=== PATIENT | female | born 1980 | race Caucasian/White ===

== ENCOUNTER 2020-08-26 23:25 | Emergency (ER) | payer SELFPAY ==
[~2020-08-26] VITALS: Ht 158.8 cm; Wt 52.7 kg
--- NOTE | 2020-08-26 23:37 | PHYS DOC ---
General Adult EDM: Chief Complaint: LOWER EXT PAIN HPI: HPI: Patient is a 40-year-old female presenting via EMS for left lower extremity pain. Reports she was seen and thoroughly evaluated at [facility] yesterday and tested positive for Covid 19. Reports she is homeless, has been on her feet walking around the city and called EMS and attempt they would take her to a local hotel which houses homeless individuals with known COVID-19 infection. Said hotel does not currently offer the service anymore and so, patient reports she wanted to go to any hospital so she could be seen for left lower extremity pain. Reports this pain has been ongoing but exacerbated due to her being on her feet all day. Has not taken anything for this pain. Review of Systems: Review of Systems: Fourteen body systems of review of systems have been reviewed. See HPI for pertinent positives and negative responses, other novoa all other systems are negative, non-pertinent or non-contributory Heart Score: C/O Chest Pain: No Risk Factors: Risk Factors: DM, Current or recent (<one month) smoker, HTN, HLP, family history of CAD, obesity. Risk Scores: Score 0 - 3: 2.5% MACE over next 6 weeks - Discharge Home Score 4 - 6: 20.3% MACE over next 6 weeks - Admit for Clinical Observation Score 7 - 10: 72.7% MACE over next 6 weeks - Early Invasive Strategies Physical Exam: PE: Constitutional: Well developed, well nourished, no acute distress, non-toxic a ppearance. HENT: Normocephalic, atraumatic, bilateral external ears normal, oropharynx moist, no oral exudates, nose normal. Eyes: PERRLA, EOMI, conjunctiva normal, no discharge. Neck: Normal range of motion, no tenderness, supple, no stridor. Cardiovascular: Heart rate regular, sinus rhythm, no murmurs rubs or gallops Lungs & Thorax: Bilateral breath sounds clear to auscultation Abdomen: Bowel sounds normal, soft, no tenderness, no masses, no pulsatile masses. Nonsurgical abdomen, no peritoneal signs Skin: Warm, dry, no erythema, no rash. Back: No tenderness, no CVA tenderness. Extremities: No tenderness, no cyanosis, no clubbing, ROM intact, no edema. Neurologic: Alert and oriented X 3, grossly normal motor & sensory function, no focal deficits noted. Psychologic: Manipulative mood, Current Patient Data: Vital Signs: Vital Signs Date Time Temp Pulse Resp B/P (MAP) Pulse Ox O2 Delivery O2 Flow Rate FiO2 08/26/20 23:30 98.6 86 20 126/81 (96) 100 Room Air 98.6 Vital Signs Date Time Temp Pulse Resp B/P (MAP) Pulse Ox O2 Delivery O2 Flow Rate FiO2 08/27/20 02:06 98 18 127/69 (88) 99 Room Air 08/26/20 23:30 98.6 98.6 EKG: EKG: [] Radiology/Procedures: Radiology/Procedures: [] Course & Med Decision Making: Course & Med Decision Making Vital signs stable. HPI and physical exam grossly nonconcerning Patient manipulative and malingering while in ER. She has been demanding supplemental oxygen because she states she needs it despite being 100% on room air. Nasal cannula without supplemental oxygen placed on patient with improvement in symptoms per her report Patient's lower extremity examination unremarkable, no indication for further diagnostic work-up. Tylenol administered Patient educated on COVID-19 infection and next steps of care especially that she is homeless. Resources given. Reiterated there is no indication for further diagnostic work-up or hospital admission at present time Patient discharged home in stable condition, strict return precautions discussed with good understanding by patient, all questions and concerns addressed prior to your departure Dragon Disclaimer: Linda Disclaimer: This electronic medical record was generated, in whole or in part, using a voice recognition dictation system. Departure Departure Impression: Primary Impression: COVID-19 Disposition: HOME / SELF CARE / HOMELESS Condition: STABLE Additional Instructions: You were seen for right lower extremity pain with known COVID-19 infection. Your physical exam was reassuring. You need to quarantine yourself at home away from all other individuals, especially those who are elderly or have any other chronic health issues or an immunocompromised status. You should return to the ED if you develop worsening cough, shortness of breath, chest pain, or any other new or concerning symptoms. Alternate Tylenol and ibuprofen as needed for body aches and pain. You should make sure to drink plenty of fluids and get plenty of rest. TRENTON MELGOZA DO August 26, 2020 23:37
[2020-08-27] MEDS ORDERED: ACETAMINOPHEN 325 MG TABLET. PO ONE
[2020-08-27 02:06] VITALS: BP 127/69
== END 2020-08-27 02:40 | disposition home or self-care (01) ==
LOC: ER 23:25
DX: U07.1 COVID-19 (principal); Z59.0 Homelessness
CPT/HCPCS: 99285-25